=== PATIENT | male | born 1980 | race Native Hawaiian/Other Pacific Islander ===

== ENCOUNTER 2021-09-16 17:12 | Emergency (ER) | payer OTHER ==
[~2021-09-16] VITALS: Ht 193 cm; Wt 99.8 kg
[2021-09-16 17:26] VITALS: TEMP 99.1
[2021-09-16 17:49] LABS: PLATELET COUNT 212 K/uL (142-355)
[2021-09-16 17:58] LABS: POTASSIUM 4.9 mmol/L (3.6-5.2)
[2021-09-16 19:35] VITALS: BP 118/60
== END 2021-09-16 19:35 | disposition home or self-care (01) ==
LOC: ED 17:12
PROVIDERS: Hospitalist
DX: K27.9 Peptic ulcer, site unspecified, unspecified as acute or chronic, without hemorrhage or perforation (principal); K29.60 Other gastritis without bleeding; R11.2 Nausea with vomiting, unspecified; K80.80 Other cholelithiasis without obstruction
CPT/HCPCS: 36415; 80053; 80320; 83690; 84484; 85027; 93005; 96360; 96365; 96375; 99284; J2543; J3411; J3475; J3490; Q9963